=== PATIENT | male | born 1960 | race African-American/Black ===

== ENCOUNTER 2018-01-20 23:17 | Emergency (ER) | payer BC, SELFPAY ==
[2018-01-20] MEDS ORDERED: Metoclopramide HCl 10 MG/2 ML VIAL ONE (23:30)
[2018-01-20] MEDS ORDERED: diphenhydrAMINE 50 MG/ML VIAL ONE (23:30)
[2018-01-21] MEDS ORDERED: Magnesium Sulfate 2 GM/100 ML BAG ONE (00:29)
[2018-01-21] MEDS ORDERED: Ketorolac Tromethamine 30 MG/ML VIAL ONE (00:29)
[2018-01-21] MEDS ORDERED: Morphine 4 MG/ML VIAL ONE (02:40)
[2018-01-21] MEDS ORDERED: Ondansetron HCl/PF 4 MG/2 ML Vial ONE (02:40)
[2018-01-21 03:13] LABS: #Basophils 0.1 thou/uL (0.0-0.2); #Eosinphils 0.1 thou/uL (0.0-0.7); #Lymphocytes 1.7 thou/uL (1.20-3.40); #Monocytes 0.3 thou/uL (0.11-0.59); #Neutrophils 4.2 thou/uL (1.40-6.50); %Basophils 0.8 % (0.0-1.0); %Lymphocytes 26.9 % (21.0-51.0); %Monocytes 5.2 % (0.0-10.0); Hemoglobin 14.2 g/dL (14.0-18.0); Mean Corpuscular HGB CONC 32.8 g/dL (32.0-36.0); Mean Corpuscular Hemoglobin 30.6 pg (27.0-31.0); Mean Corpuscular Volume 93.2 fL (78.0-98.0); Mean Platelet Volume 7.2 fL (7.4-10.4); Platelet Count 301 thou/uL (130-400); RBC Distribution Width 13.6 % (11.5-14.5); Red Blood Cell (RBC) Count 4.66 mill/uL (4.70-6.10); White Blood Cell (WBC) Count 6.4 thou/uL (4.8-10.8)
[2018-01-21] MEDS ORDERED: methylPREDNISolone Sod Succ/PF 125 MG/2 ML VIAL ONE (03:30)
[2018-01-21 03:37] LABS: ALT (SGPT) 10 U/L (8-55); AST (SGOT) 20 U/L (5-34); Albumin 3.6 g/dL (3.5-5.0); Alkaline Phosphatase 53 U/L (40-150); Anion Gap 12 mmol/L (10-20); BUN (Urea Nitrogen) 13 mg/dL (8.4-25.7); Bilirubin, Total 0.4 mg/dL (0.2-1.2); Calc. Creatinine Clearance 0 mL/min (70-130); Calcium 8.6 mg/dL (7.8-10.44); Carbon Dioxide 22 mmol/L (22-29); Chloride 108 mmol/L (98-107); Estimated GFR-MDRD Greater than 90; Globulin 3.6 g/dL (2.4-3.5); Glucose 109 mg/dL (70-105); Protein, Total 7.2 g/dL (6.0-8.3); Sodium 138 mmol/L (136-145)
--- NOTE | 2018-01-21 11:13 | CT ---
PRELIMINARY REPORT/[facility]/EMERGENCY AFTER HOURS PROCEDURE: EXAM: CT Head Without Intravenous Contrast CLINICAL HISTORY: 57 years old, male; Pain; Headache; Patient HX: 57 yo m presents to ed with migraine. Pt reports cons tant migraine to his left amish region for the past 3-4 weeks, with associated nausea tonight. Pt re ports chronic intermittent migraines for years, states that current migraine is similar to chronic mi graines just more severe and it has lasted longer than in the past. Pt denies vomiting, denies fever TECHNIQUE: Axial computed tomography images of the head/brain without intravenous contrast. COMPARISON: No relevant prior studies available. FINDINGS: No definite acute skull fracture. Included paranasal sinuses are essentially clear. No acute intracranial hemorrhage or mass effect. Ventricle size is normal for age. No definite acute infarct by CT. IMPRESSION: No acute intracranial bleed or mass effect. Thank you for allowing us to participate in the care of your patient. Dictated and Authenticated by: Waqas Marquez MD 01/21/2018 3:53 AM Central Time ([place] & [place]) FINAL REPORT EMERGENT AFTER HOURS NONCONTRAST CT HEAD: DATE: 01/21/18. HISTORY: Headache. Migraine. COMPARISON: 12/28/13. IMPRESSION: 1. No acute intracranial abnormality is demonstrated. 2. Minimal sinus disease. 3. CT head is unchanged from prior exam. 4. Findings are in agreement with the preliminary report by [facility]. POS: [facility]
== END 2018-01-21 04:34 | disposition home or self-care (01) ==
LOC: ERS 23:17
DX: G43.909 Migraine, unspecified, not intractable, without status migrainosus (principal); F17.210 Nicotine dependence, cigarettes, uncomplicated; Z71.6 Tobacco abuse counseling; Z79.899 Other long term (current) drug therapy
CPT/HCPCS: 36415; 70450; 80053; 85025; 96365; 96375; 99406; J1200; J1885; J2270; J2405; J2765; J2930; J3475

== ENCOUNTER 2020-06-03 19:37 | Emergency (ER) | payer BC, OTHER ==
[2020-06-03] MEDS ORDERED: Magnesium 2 GM/50 ML BAG (IN WATER) ONE (20:15)
[2020-06-03] MEDS ORDERED: Metoclopramide HCl 10 MG/2 ML VIAL ONE (20:15)
[2020-06-03] MEDS ORDERED: methylPREDNISolone Sod Succ/PF 125 MG/2 ML VIAL ONE (20:15)
[2020-06-03] MEDS ORDERED: Ketorolac Tromethamine 30 MG/ML VIAL ONE ×2 (20:15→22:14)
[2020-06-03] MEDS ORDERED: diphenhydrAMINE 50 MG/ML VIAL ONE (20:15)
[2020-06-03] MEDS ORDERED: Ketamine 50 MG/ML (10ML VIAL) ONE (21:34)
[2020-06-03] MEDS ORDERED: Morphine 4 MG/ML VIAL ONE (22:14)
[2020-06-03] MEDS ORDERED: Valproate Sodium 500 MG in Sodium Chloride 0.9% 100 ML IVPB SCH (22:15)
== END 2020-06-03 22:42 | disposition home or self-care (01) ==
LOC: ERS 19:37
DX: G43.909 Migraine, unspecified, not intractable, without status migrainosus (principal); F17.210 Nicotine dependence, cigarettes, uncomplicated
CPT/HCPCS: 96365; 96367; 96375; 96376; J1200; J1885; J2270; J2765; J2930; J3475; J3490

== ENCOUNTER 2022-04-18 04:56 | Emergency (ER) | payer BC | END 2022-04-18 06:02 | LOC: ERS 04:56 | DX: S70.02XA Contusion of left hip, initial encounter (principal); F17.210 Nicotine dependence, cigarettes, uncomplicated; X58.XXXA Exposure to other specified factors, initial encounter | CPT/HCPCS: 72170 ==

== ENCOUNTER 2025-02-03 01:10 | Emergency (ER) | payer BC, SELFPAY ==
[2025-02-03 01:36] LABS: #Basophils 0.07 10x3/uL (0.0-0.2); #Eosinophils 0.10 10x3/uL (0.0-0.7); #Monocytes 0.61 10x3/uL (0.11-0.59); #Neutrophils 3.71 10x3/uL (1.40-6.50); %Basophils 1.0 % (0.0-1.0); %Eosinophils 1.5 % (0.0-10.0); %Lymphocytes 34.0 % (21.0-51.0); %Monocytes 8.9 % (0.0-10.0); %Neutrophils 54.2 % (42.0-75.0); Hematocrit 41.3 % (42.0-52.0); Hemoglobin 13.9 g/dL (14.0-18.0); Mean Corpuscular Hemoglobin 30.3 pg (27.0-31.0); Mean Corpuscular Volume 90.0 fL (78.0-98.0); Platelet Count 312 10x3/uL (130-400); Red Blood Cell (RBC) Count 4.59 mill/uL (4.70-6.10); White Blood Cell (WBC) Count 6.85 10x3/uL (4.8-10.8)
[2025-02-03 01:49] LABS: ALT (SGPT) 12 U/L (Less than 45); AST (SGOT) 34 U/L (11-34); Albumin 3.8 g/dL (3.1-4.5); Alkaline Phosphatase 59 U/L (40-110); Anion Gap 16 mmol/L (10-20); BUN (Urea Nitrogen) 7 mg/dL (8.4-25.7); Bilirubin, Total 0.2 mg/dL (0.3-1.2); Calc. Creatinine Clearance 0 mL/min (70-130); Calcium 8.8 mg/dL (7.8-10.44); Carbon Dioxide 20 mmol/L (23-31); Chloride 107 mmol/L (98-107); Globulin 4.2 g/dL (2.4-3.5); Glucose 79 mg/dL (80-115); Potassium 3.7 mmol/L (3.5-5.1); Sodium 139 mmol/L (136-145)
== END 2025-02-03 04:20 | disposition home or self-care (01) ==
LOC: ERS 01:10
DX: R07.89 Other chest pain (principal); F17.210 Nicotine dependence, cigarettes, uncomplicated
CPT/HCPCS: 36415; 71045; 80053; 84484; 85025; 93005